=== PATIENT | male | born 1980 | race Caucasian/White ===

== ENCOUNTER 2023-01-31 08:30 | Outpatient (CLI) | payer BC, SELFPAY | END 2023-01-31 08:31 | disposition home or self-care (01) | LOC: NFLDREF 22:08 | PROVIDERS: PCP Family Medicine; Referring Provider Family Medicine; Visit Provider Family Medicine | DX: Z00.00 Encounter for general adult medical examination without abnormal findings (principal); Z80.42 Family history of malignant neoplasm of prostate; Z13.6 Encounter for screening for cardiovascular disorders | CPT/HCPCS: 80048; 80061; 84153 ==

== ENCOUNTER 2023-02-05 10:53 | Outpatient (CLI) | payer BC, SELFPAY ==
--- NOTE | 2023-02-05 11:00 | CRLHL7_ITS ---
For Patients: As a result of the Century Cures Act, medical imaging exams and procedure reports are released immediately into your electronic medical record. You may view this report before your referring provider. If you have questions, please contact your health care provider. INDICATION: RIGHT CALF PAIN COMPARISON: None. TECHNIQUE: A compression venous ultrasound exam was performed of the right lower extremity using willson-scale imaging, color Doppler and spectral Doppler analysis. FINDINGS: Sonographic imaging of the right lower extremity demonstrates normal compressibility and color Doppler venous blood flow within the common femoral vein, deep femoral vein, and the proximal greater saphenous vein. Within the thigh, the femoral vein is patent and compressible. At a lower level, the popliteal and posterior tibial veins also show normal compressibility and color Doppler venous blood flow. Multiple varicosities are present within the right posterior calf without superficial clot. Limited imaging of the contralateral groin demonstrates a normal spectral waveform and color Doppler venous blood flow within the left common femoral vein. IMPRESSION: No evidence of deep vein thrombosis within the right lower extremity. Multiple varicosities in the right posterior calf without superficial clot. Dictated by Eliu Vega MD @ 02/05/2023 11:42:25 AM (Electronically Signed)
== END 2023-02-05 10:54 | disposition home or self-care (01) ==
LOC: US 10:54
PROVIDERS: PCP Family Medicine; Visit Provider Family Medicine
DX: M79.604 Pain in right leg (principal); I83.91 Asymptomatic varicose veins of right lower extremity
CPT/HCPCS: 93971

== ENCOUNTER 2024-07-16 08:12 | Outpatient (CLI) | payer BC, SELFPAY | END 2024-07-16 08:13 | disposition home or self-care (01) | LOC: NFLDREF 07-17 14:55 | PROVIDERS: PCP Family Medicine; Referring Provider Family Medicine; Visit Provider Family Medicine | DX: R53.83 Other fatigue (principal); Z80.42 Family history of malignant neoplasm of prostate; Z12.5 Encounter for screening for malignant neoplasm of prostate; Z13.220 Encounter for screening for lipoid disorders; Z13.228 Encounter for screening for other metabolic disorders | CPT/HCPCS: 80053; 80061; 84270; 84402; 84403; G0103 ==

== ENCOUNTER 2025-02-11 09:03 | Outpatient (CLI) | payer BC, SELFPAY ==
[2025-02-11 13:41] LABS: Albumin* 4.5 g/dL (3.3-5.0)
[2025-02-11 13:44] LABS: Alanine Aminotransferase* 28 U/L (4-50); Alkaline Phosphatase* 49 U/L (40-150); Aspartate Amino Transferase* 26 U/L (12-35); Bilirubin Direct* 0.4 mg/dL (0.0-0.5); Bilirubin Total* 0.8 mg/dL (0.1-1.5); Cholesterol* 164 mg/dL (90-199); Total Protein* 6.7 g/dL (6.0-8.3); Triglycerides* 109 mg/dL (40-149)
[2025-02-11 13:45] LABS: HDL Cholesterol* 54 mg/dL (>=40); LDL Cholesterol Calculated 88 mg/dL (<100)
[2025-02-12 19:42] LABS: LDL Cholesterol, Direct 96 mg/dL (0-129)
== END 2025-02-11 09:04 | disposition home or self-care (01) ==
LOC: NPINS 09:04
PROVIDERS: PCP Family Medicine; Visit Provider Physician Assistant
DX: L70.0 Acne vulgaris (principal); Z13.6 Encounter for screening for cardiovascular disorders
CPT/HCPCS: 80061; 80076; 83721

== ENCOUNTER 2025-03-16 08:31 | Outpatient (CLI) | payer BC, SELFPAY ==
[2025-03-16 14:04] LABS: Albumin* 4.8 g/dL (3.3-5.0)
[2025-03-16 14:07] LABS: Alanine Aminotransferase* 33 U/L (4-50); Alkaline Phosphatase* 60 U/L (40-150); Aspartate Amino Transferase* 31 U/L (12-35); Bilirubin Direct* 0.2 mg/dL (0.0-0.5); Bilirubin Total* 1.5 mg/dL (0.1-1.5); Cholesterol* 205 mg/dL (90-199); HDL Cholesterol* 56 mg/dL (>=40); LDL Cholesterol Calculated 136 mg/dL (<100); Total Protein* 7.3 g/dL (6.0-8.3); Triglycerides* 63 mg/dL (40-149)
[2025-03-18 05:50] LABS: LDL Cholesterol, Direct 135 mg/dL (0-129)
== END 2025-03-16 08:32 | disposition home or self-care (01) ==
LOC: NPINS 08:31
PROVIDERS: PCP Family Medicine; Visit Provider Physician Assistant
DX: L70.0 Acne vulgaris (principal)
CPT/HCPCS: 80061; 80076; 83721

== ENCOUNTER 2025-04-25 08:12 | Outpatient (CLI) | payer BC, SELFPAY ==
[2025-04-25 13:37] LABS: Albumin* 4.2 g/dL (3.3-5.0)
[2025-04-25 13:40] LABS: Alanine Aminotransferase* 29 U/L (4-50); Alkaline Phosphatase* 49 U/L (40-150); Aspartate Amino Transferase* 31 U/L (12-35); Bilirubin Direct* 0.3 mg/dL (0.0-0.5); Bilirubin Total* 0.6 mg/dL (0.1-1.5); Cholesterol* 187 mg/dL (90-199); HDL Cholesterol* 51 mg/dL (>=40); Total Protein* 6.5 g/dL (6.0-8.3); Triglycerides* 74 mg/dL (40-149)
== END 2025-04-25 08:13 | disposition home or self-care (01) ==
LOC: NPINS 08:12
PROVIDERS: PCP Family Medicine; Visit Provider Physician Assistant
DX: L70.0 Acne vulgaris (principal)
CPT/HCPCS: 80061; 80076

== ENCOUNTER 2025-05-30 16:00 | Outpatient (CLI) | payer BC, SELFPAY ==
[2025-05-30 22:02] LABS: Albumin* 4.7 g/dL (3.3-5.0)
[2025-05-30 22:05] LABS: Alanine Aminotransferase* 26 U/L (4-50); Alkaline Phosphatase* 53 U/L (40-150); Aspartate Amino Transferase* 29 U/L (12-35); Bilirubin Direct* 0.3 mg/dL (0.0-0.5); Bilirubin Total* 0.8 mg/dL (0.1-1.5); Cholesterol* 204 mg/dL (90-199); HDL Cholesterol* 55 mg/dL (>=40); Total Protein* 7.4 g/dL (6.0-8.3); Triglycerides* 72 mg/dL (40-149)
== END 2025-05-30 16:01 | disposition home or self-care (01) ==
LOC: NPINS 06-01 08:33
PROVIDERS: PCP Family Medicine; Visit Provider Physician Assistant
DX: L70.0 Acne vulgaris (principal)
CPT/HCPCS: 80061; 80076

== ENCOUNTER 2025-08-09 15:03 | Outpatient (CLI) | payer BC, SELFPAY ==
--- NOTE | 2025-08-09 15:00 | CRLHL7_ITS ---
For Patients: As a result of the Century Cures Act, medical imaging exams and procedure reports are released immediately into your electronic medical record. You may view this report before your referring provider. If you have questions, please contact your health care provider. Indication: RLQ ABD PAIN Technique: Noncontrast CT abdomen and pelvis Please note that all CT scans at this facility use dose modulation, iterative reconstruction, and/or weight-based dosing when appropriate to reduce radiation dose to as low as reasonably achievable. Comparison: None Findings: Postop changes to the right lower quadrant with multiple gertrude present. No bowel obstruction or inflammatory change. The bladder is normal. No recurrent inguinal hernia. No renal, ureteral or bladder stone. Adrenal glands normal. Calcified splenic granulomas. Normal pancreas. Liver normal. Lung bases clear. No fracture. No free air or free fluid. No adenopathy. Impression: Postop changes to the right lower quadrant. No acute findings. Please note that all CT scans at this facility use dose modulation, iterative reconstruction, and/or weight-based dosing when appropriate to reduce radiation dose to as low as reasonably achievable. Dictated by Eliu Vega MD @ 08/10/2025 9:00:51 AM (Electronically Signed)
== END 2025-08-09 15:04 | disposition home or self-care (01) ==
LOC: CT 15:04
PROVIDERS: PCP Family Medicine; Visit Provider Family Medicine
DX: R10.31 Right lower quadrant pain (principal)
CPT/HCPCS: 74176